=== PATIENT | male | born 1985 | race Caucasian/White ===

== ENCOUNTER 2018-07-03 18:37 | Emergency (ER) | payer OTHER ==
[2018-07-03 19:10] VITALS: BP 143/81; PULSE 90; RESP 18; TEMP 98; O2SAT 98
== END 2018-07-03 20:25 | disposition home or self-care (01) | DRG 607 ==
LOC: ED 18:37
DX: R22.41 Localized swelling, mass and lump, right lower limb (principal); M79.671 Pain in right foot
CPT/HCPCS: 99282